=== PATIENT | male | born 1995 | race Caucasian/White ===

== ENCOUNTER 2017-09-01 20:39 | Emergency (ER) | payer OTHER ==
[2017-09-01] MEDS ORDERED: NS 0.9% 1000 ML* 1,000 ML IV ONE (20:56)
--- NOTE | 2017-09-01 21:23 | RAD ---
INDICATION: Chest pain. COMPARISON: There are no prior studies available for comparison. TECHNIQUE: A portable view of the chest was obtained. FINDINGS: Cardiac and mediastinal contours appear to be within normal limits. The lungs are clear. No pleural effusion is seen. IMPRESSION: NO EVIDENCE FOR ACUTE DISEASE.
[2017-09-01 21:30] LABS: Hematocrit 45 % (42-52); Hemoglobin 15.7 g/dl (14.0-18.0); Mean Corpuscular HGB Conc 35 g/dl (31-36); Mean Corpuscular Hemoglobin 31 pg (27-31); Mean Corpuscular Volume 89 fL (80-94); Mean Platelet Volume 9 um3 (7.4-10.4); Red Blood Count 5.06 10^6/ul (4.0-5.4); Red Cell Distribution Width 13 % (10.5-15); White Blood Count 7.3 10^3/ul (3.5-10.8)
[2017-09-01 21:42] LABS: ALT 19 U/L (7-52); AST 22 U/L (13-39); Albumin 4.5 g/dL (3.2-5.2); Alkaline Phosphatase 61 U/L (34-104); Anion Gap 6 mmol/L (2-11); Blood Urea Nitrogen 10 mg/dL (6-24); C Reactive Protein < 1.00 mg/L (< 5.00); CO2 Carbon Dioxide 29 mmol/L (22-32); Calcium 9.8 mg/dL (8.6-10.3); Chloride 103 mmol/L (101-111); EGFR African American 150.4 (>60); Glucose 110 mg/dL (70-100); Lipase 46 U/L (11.0-82.0); Magnesium 2.1 mg/dL (1.9-2.7); Potassium 3.4 mmol/L (3.5-5.0); Sodium 138 mmol/L (133-145); Total Protein 7.5 g/dL (6.4-8.9)
[2017-09-01 22:08] LABS: TSH (Thyroid Stimulating Horm) 2.29 mcIU/mL (0.34-5.60)
[2017-09-01 22:24] VITALS: BP 117/76
== END 2017-09-01 23:20 | disposition home or self-care (01) ==
LOC: ED 20:39
DX: R07.89 Other chest pain (principal)
CPT/HCPCS: 36415; 71010; 80053; 83605; 83690; 83735; 84443; 84484; 85025; 85379; 85610; 86140; 93005; 99283